=== PATIENT | female | born 1950 | race Caucasian/White ===

== ENCOUNTER → 2017-12-03 16:15 | Outpatient (CLI) | payer MEDICARE, OTHER, SELFPAY ==
--- NOTE | 2017-12-03 | DI.MRI.S_ITS ---
PROCEDURE: MR CERVICAL SPINE WO CON INDICATIONS: NECK PAIN TECHNIQUE: Noncontrast sagittal T1 spin echo and T2 fast spin echo, sagittal STIR, foraminal oblique sagittal T2 fast spin echo, and axial gradient echo or T2 fast spin echo through the cervical spine. COMPARISON: None. FINDINGS: Image quality: Excellent. Spinal Cord: Visualized spinal cord has normal size and signal. No cerebellar tonsillar herniation. The imaged midline intracranial structures are grossly unremarkable. Paraspinous Soft Tissues: No paravertebral masses. Prevertebral soft tissues are normal in thickness. No definite lymphadenopathy is identified. Bones: The vertebral body heights and marrow signal are well-maintained. There is no evidence of an acute fracture or dislocation. No suspicious osseous lesions are identified. C2-C3: There is no significant disc bulge or facet arthropathy. No central canal or neural foraminal stenosis is evident. C3-C4: Mild uncovertebral hypertrophic changes and a mild to moderate bilateral facet arthrosis (left greater than right) is present at this level. These findings result in mild right and moderate left neural foraminal narrowing. No central canal stenosis is evident. C4-C5: There is disc desiccation and mild diffuse disc bulge with uncovertebral hypertrophic changes and mild to moderate bilateral facet arthrosis. There is no central canal stenosis. However, there is mild left neural foraminal narrowing. No right neural foraminal stenosis is evident. C5-C6: There is disc height loss, diffuse disc bulge, posterior disc osteophyte complex, and mild to moderate facet arthrosis (left greater than right). There is no central canal or right neuroforaminal narrowing. However, there is mild to moderate left neural foraminal narrowing. C6-C7: There is disc desiccation and a diffuse disc bulge with posterior disc osteophyte complex and mild to moderate facet arthrosis. There is no central canal stenosis. However, there is moderate left and mild right neuroforaminal narrowing. C7-T1: There is disc desiccation without significant disc bulge or facet arthrosis. No central canal or neural foraminal narrowing is evident. IMPRESSION: 1. Mild to moderate multilevel degenerative changes of the cervical spine. 2. No focal disc protrusions or extrusions. 3. No central canal stenosis. 4. Neural foraminal stenosis: C3-C4 (mild right, moderate left), C4-C5 (mild left), C5-C6 (mild to moderate left), C6-C7 (right, moderate left). Dictated by: Willian Lee M.D. on 12/03/2017 at 16:49 Approved by: Willian Lee M.D. on 12/03/2017 at 16:55
== END ==
PROVIDERS: Family Provider Nurse Practitioner; PCP Nurse Practitioner; Visit Provider Physical Medicine & Rehabilitation Pain Medicine
DX: M54.2 Cervicalgia (principal); M50.30 Other cervical disc degeneration, unspecified cervical region; M48.02 Spinal stenosis, cervical region
CPT/HCPCS: 72141

== ENCOUNTER → 2018-10-10 13:39 | Outpatient (CLI) | payer MEDICARE, OTHER, SELFPAY ==
--- NOTE | 2018-10-10 | DI.MRI.S_ITS ---
PROCEDURE: MR SHOULDER LT WO CON INDICATIONS: IMPINGEMENT OF L SHOULDER TECHNIQUE: Noncontrast oblique coronal T2 fast spin echo with fat saturation, oblique sagittal T1 spin echo and T2 fast spin echo with fat saturation, axial T1 spin echo and T2 fast spin echo with fat saturation through the shoulder. COMPARISON: [facility], , SHOULDER WITHOUT CONTRAST, 09/21/2017, 16:50. FINDINGS: Image quality: Diagnostic. Rotator cuff: No full-thickness or high-grade partial-thickness tear the rotator cuff is present. However, there is supraspinatus, infraspinatus, and subscapularis tendinopathy with areas of low grade bursal surface partial thickness tearing. The teres minor tendon is intact. No significant atrophy of the rotator cuff muscles is evident. Bones and bursae: No acute fracture, dislocation, or suspicious osseous lesion is identified involving the osseous structures of the left shoulder. There are mild to moderate degenerative changes of the glenohumeral and acromio clavicular joints. Widening of the acromioclavicular joint may be related to previous injury. No surrounding soft tissue edema is evident to suggest an acute process. There is a small glenohumeral joint effusion. Moderate amount of fluid is contained within the subacromial subdeltoid bursa. Capsule and soft tissues: Evaluation of the labrum and the glenohumeral ligaments is difficult without intra-articular contrast. However, there does appear to be a posterosuperior labral tear extending from the 12 o'clock position to the 3 o'clock position. No para labral cysts are evident. The long head of the biceps tendon is normally positioned within the bicipital groove. However, the intra-articular portion of the biceps tendon is thickened and edematous, most pronounced at the level of the biceps anchor, suggesting tendinopathy and possible intrasubstance partial thickness tearing. No acute ligamentous injuries of the shoulder are appreciated. Incidental note is made of borderline prominent lymph nodes within the axillary region. IMPRESSION: 1. Mild to moderate supraspinatus, infraspinatus, and subscapularis tendinopathy with areas of low-grade partial-thickness tearing. 2. Small posterosuperior labral tear. 3. Moderate tendinopathy and probable low-grade intrasubstance partial thickness tearing involving the intra-articular portion of the biceps tendon. 4. Mild to moderate degenerative changes of the left shoulder joints. Dictated by: Willian Lee M.D. on 10/10/2018 at 14:54 Approved by: Willian Lee M.D. on 10/10/2018 at 15:02
[2018-10-10 15:25] LABS: Erythrocyte Sedimentation Rate 12 MM/HR (0-20)
[2018-10-10 16:44] LABS: Alanine Aminotransferase 35 IU/L (9-52); Albumin 4.4 g/dL (3.5-5.0); Albumin Globulin Ratio 1.8 (1.0-2.8); Alkaline Phosphatase 68 U/L (38-126); Aspartate Aminotransferase 26 IU/L (14-36); Bilirubin Unconjugated 0.1 mg/dL (0.0-1.1); Carbon Dioxide 27 mmol/L (22-32); Chloride 102 mmol/L (98-107); Globulin 2.4 g/dL (1.7-4.1); HEMOLYSIS < 15 (0-50); Potassium 4.4 mmol/L (3.4-5.1); Sodium 139 mmol/L (137-145); Total Protein 6.8 g/dL (6.3-8.2)
[2018-10-10 16:47] LABS: Rheumatoid Factor 9.7 IU/mL (<12.0)
[2018-10-10 16:51] LABS: Bilirubin Total < 0.1 mg/dL (0.2-1.3)
[2018-10-13 19:56] LABS: ANA Pattern Homogeneous; ANA Screen, IFA Positive (Negative); ANA Titer 1:40 titer (<1:40)
== END ==
PROVIDERS: Family Provider Nurse Practitioner; PCP Nurse Practitioner; Visit Provider Orthopaedic Surgery
DX: M75.42 Impingement syndrome of left shoulder (principal); M19.012 Primary osteoarthritis, left shoulder; S43.492A Other sprain of left shoulder joint, initial encounter; M25.50 Pain in unspecified joint
CPT/HCPCS: 36415; 73221; 80051; 80076; 84550; 85651; 86038; 86430

== ENCOUNTER 2018-11-08 09:47 | Emergency (ER) | payer MEDICARE, OTHER, SELFPAY ==
[2018-11-08 09:59] VITALS: BP 137/63; PULSE 77; RESP 16; TEMP 36.7; O2SAT 95; BMI 27.4
[2018-11-08] MEDS: SODIUM CHLORIDE 0.9% 1,000 ML 1000 ML IV ×2 (10:19→11:55)
[2018-11-08] MEDS: ONDANSETRON 4 MG/2 ML INJ IV (10:19)
[2018-11-08 10:36] LABS: Hematocrit 34.6 % (36-46); Hemoglobin 11.9 g/dL (12.0-16.0); Mean Corpuscular HGB Conc 34.4 % (30-36); Mean Corpuscular Hemoglobin 31.2 PG (26-34); Mean Corpuscular Volume 90.9 fL (80-100); Platelet Count 187 X10^3/uL (150-400); Red Blood Cell Count 3.81 X10^6/uL (4.0-5.2); Red Cell Distribution Width 13.4 % (11.6-14.8); White Blood Cell Count 3.3 X10^3/uL (4.5-11.0)
[2018-11-08 10:38] LABS: Albumin 3.7 g/dL (3.5-5.0); Albumin Globulin Ratio 1.2 (1.0-2.8); Aspartate Aminotransferase 45 IU/L (14-36); Blood Urea Nitrogen 8 mg/dL (7-17); Estimated Glomerular Filt Rate > 60.0 mL/min (>60); Total Protein 6.7 g/dL (6.3-8.2)
[2018-11-08 10:43] LABS: Add Manual Diff / Slide Review YES
[2018-11-08 10:46] VITALS: BP 119/60; PULSE 78; RESP 18; O2SAT 98
[2018-11-08 10:51] LABS: Alanine Aminotransferase 16 IU/L (9-52); Alkaline Phosphatase 58 U/L (38-126); Bilirubin Total 0.5 mg/dL (0.2-1.3); Calcium 8.3 mg/dL (8.4-10.2); Carbon Dioxide 28 mmol/L (22-32); Chloride 94 mmol/L (98-107); Glucose 113 mg/dL (80-110); Potassium 3.5 mmol/L (3.4-5.1); Sodium 130 mmol/L (137-145)
[2018-11-08 10:58] LABS: HEMOLYSIS 118 (0-50)
[2018-11-08 11:10] LABS: Appearance Urine UA CLEAR; Bilirubin Urine UA NEGATIVE (NEGATIVE); Color Urine UA YELLOW; Glucose Urine UA NEGATIVE (Negative); Ketones Urine UA TRACE (NEGATIVE); Leukocyte Esterase Urine UA 1+ (NEGATIVE); Nitrite Urine UA NEGATIVE (Negative); Occult Blood Urine UA TRACE-LYSED (Negative); Protein Urine UA 1+ (Negative); Urobilinogen Urine UA 0.2 E.U./dL (0.2)
[2018-11-08 11:22] LABS: Bacteria Urine Few (2-10); Culture Indicated Urine Specimen Cultured; RBC Urine 0-1/HPF (0-5/HPF); Squamous Epithelial Cell Urine 1-5 /HPF (0-5/HPF); WBC Urine 1-5/HPF (0-5/HPF)
[2018-11-08] MEDS: KETOROLAC 60 MG/2 ML VIAL 30 MG IV (11:39)
[2018-11-08 11:54] LABS: Neutrophils Absolute Manual 1485 /uL (3000-5900); RBC Morphology Normal Morphology; Total Cells Counted 100
[2018-11-08 12:38] VITALS: BP 126/78; PULSE 78; RESP 14; O2SAT 91
[2018-11-08] MEDS: levoFLOXacin 250 MG TABLET 500 MG PO (12:51)
--- NOTE | 2018-11-10 19:26 | ED.NAVMDI ---
HPI - Nausea/Vomiting/Diarrhea General Chief complaint: Nausea/Vomiting/Diarrhea Stated complaint: Can't keep anything T-3 days Time Seen by Provider: 11/08/18 10:02 Source: patient Mode of arrival: ambulatory Limitations: no limitations History of Present Illness HPI Narrative: Patient comes emergency department complaining of nausea and diarrhea for the last few days. Patient just got back from [place], where she lives part of the year and visits frequently. She states that normally she does not get sick there, but that she and a friend a spinach salad at a restaurant, and both of them are sick with the same thing. Patient states she has been having fevers at home, as well. She states that she is able to hold down fluids, but whenever she eats something or drinks something, it seems to just go straight through, so she has been avoiding taking much by mouth. She states that she noticed a green warm and the spinach, and is wondering if this is part of the cause of her symptoms. Patient denies abdominal pain, other than some cramping. No cough, chest pain, or shortness of breath. No sore throat. No dysuria. No back pain. Patient is otherwise healthy. Related Data Home Medications Medication Instructions Recorded Confirmed [VOLTAREN] 25 mg PO DAILY PRN #0 03/14/16 11/08/18 diclofenac sodium [Voltaren] 1 josé miguel TOPICAL PRN PRN #100 gm 03/14/16 11/08/18 cetirizine 10 mg PO DAILY PRN #0 tab 03/15/16 11/08/18 citalopram 20 mg PO DAILY 11/08/18 11/08/18 Previous Rx's Medication Instructions Recorded levofloxacin [Levaquin] 500 mg PO DAILY #5 tab 11/08/18 ondansetron 4 mg PO Q6-8H PRN #14 tab 11/08/18 Allergies Allergy/AdvReac Type Severity Reaction Status Date / Time hydrochlorothiazide Allergy Unknown Verified 11/08/18 09:59 [From HYDRODIURIL] sodium pentothal Allergy Unknown Uncoded 11/08/18 09:59 Review of Systems Constitutional Denies chills, Reports fever(s), Denies lethargy and Denies weakness Eyes Denies change in vision, Denies eye discharge, Denies irritation and Denies loss of vision ENT Ears, Nose, Mouth, and Throat: Denies change in voice, Denies neck pain and Denies sore throat Cardiovascular Denies chest pain, Denies irregular heart rhythm, Denies lightheadedness, Denies palpitations, Denies dyspnea, Denies dyspnea on exertion and Denies orthopnea Respiratory Denies cough, Denies dyspnea, Denies dyspnea on exertion and Denies wheezing Gastrointestinal Gastrointestinal: Denies abdominal pain, Denies change in bowel habits, Reports diarrhea, Reports nausea and Reports vomiting Genitourinary Denies hematuria, Denies flank pain, Denies urinary incontinence and Denies urinary urgency Musculoskeletal Denies neck pain Integumentary/Breasts Denies pruritus, Denies erythema, Denies rash and Denies wounds Neurologic Denies confusion, Denies loss of vision and Denies weakness Psychiatric Denies anxiety, Denies confusion, Denies depression, Denies homicidal ideation and Denies suicidal ideation Endocrine Denies palpitations Hematologic/Lymphatic Denies easy bruising Allergic/Immunologic Denies wheezing [facility] Medical History Traveler's diarrhea (Acute) Back pain (Acute) Piriformis syndrome (Acute) Ventral hernia (Acute) Surgical History No pertinent past surgical history (Acute) Social History Smoking Status: Never smoker Social History Smoking Status: Never smoker Exam Initial Vital Signs Initial Vital Signs: Vital Signs Temperature 98.0 F 11/08/18 09:59 Pulse Rate 77 11/08/18 09:59 Respiratory Rate 16 11/08/18 09:59 Blood Pressure 137/63 11/08/18 09:59 Pulse Oximetry 95 11/08/18 09:59 Const General: cooperative and well developed Nutritional Appearance: well nourished Orientation: alert, awake, oriented x3 and not confused [facility] Head: normocephalic and atraumatic Ears: external ears normal Nose: external nose normal and No nasal discharge Face and sinus: face symmetric and No dry mucous membranes Mouth: oral mucosae normal and moist mucous membranes Teeth and gingiva: dentition normal Eyes General: appearance normal, both eyes and all related structures Eyelids: eyelids normal Conjunctivae: conjunctivae normal Sclera: sclerae normal Pupils: PERRL EOM: EOM intact bilaterally Neck Neck: normal visual inspection, trachea midline, No lymphadenopathy, No midline deformity and No JVD Lymphatic: No lymphedema Chest Chest: normal inspection of the chest Resp Effort & Inspection: normal respiratory effort, able to speak in complete sentences, no respiratory distress and no use of accessory muscles Auscultation: clear to auscultation bilaterally, no rales, no rhonchi and no wheezes Cardio Rate: regular rate Rhythm: regular rhythm Heart Sounds: no click, no gallops, no murmurs and no rubs Pulses: normal peripheral pulses GI Inspection: non-distended Palpation: soft, no hepatosplenomegaly, No guarding, No pulsatile mass and No tender Back/Spine/Pelvis Back: No CVA tenderness Cervical Spine: cervical ROM normal and No pain with cervical ROM Thoracic/Lumbar Spine: thoracic and lumbar spine normal to inspection Skin General: no rashes or lesions noted, No jaundice and No petechiae Neuro General: alert, oriented x3, gait normal and no focal motor deficits Speech: speech normal Extrem General: full ROM, no clubbing, cyanosis or edema, no pedal edema and no calf tenderness Psych Appearance: well kempt Mental Status: mental status grossly normal Attitude: cooperative Thought Content: normal and suicidality Judgment: judgment good Course Course Narrative: Patient was treated symptomatically with IV fluids and Zofran, after which she was found to be feeling better. She was worked up with laboratory studies, which were unremarkable. I felt that given the patient's high fever, as well as the high likelihood of bacterial diarrhea, she should be treated with antibiotics. She was started on Levaquin for this. I felt the patient was stable for discharge home. We have discussed home management of the symptoms, as well as the usual indications for return. Orders Ordered: Discontinued Medications Sodium Chloride (Normal Saline 0.9%) 1,000 mls @ 1,000 mls/hr IV BOLUS ONE Stop: 11/08/18 11:13 Last Infusion: 11/08/18 11:41 Dose: 0 mls/hr Admin: 11/08/18 10:19 Dose: 1,000 mls/hr Sodium Chloride (Normal Saline 0.9%) 1,000 mls @ 1,000 mls/hr IV BOLUS ONE Stop: 11/08/18 12:40 Last Infusion: 11/08/18 13:08 Dose: 0 mls/hr Admin: 11/08/18 11:55 Dose: 1,000 mls/hr Ketorolac Tromethamine (Toradol) 30 mg IV NOW ONE Stop: 11/08/18 11:29 Last Admin: 11/08/18 11:39 Dose: 30 mg Levofloxacin (Levaquin) 500 mg PO NOW ONE Stop: 11/08/18 12:37 Last Admin: 11/08/18 12:51 Dose: 500 mg Ondansetron HCl (Zofran) 4 mg IV NOW ONE Stop: 11/08/18 10:15 Last Admin: 11/08/18 10:19 Dose: 4 mg MDM - Nausea/Vomiting/Diarrhea Medical Records Attestation: I reviewed the patient's medical records. Lab Data Attestation: I reviewed the patient's lab results. Result diagrams: 11/08/18 10:10 11/08/18 10:10 Lab Results 11/08/18 11/08/18 11/08/18 Range/Units 10:10 10:10 10:55 WBC 3.3 L (4.5-11.0) X10^3/uL RBC 3.81 L (4.0-5.2) X10^6/uL Hgb 11.9 L (12.0-16.0) g/dL Hct 34.6 L (36-46) % MCV 90.9 (80-100) fL MCH 31.2 (26-34) PG MCHC 34.4 (30-36) % RDW 13.4 (11.6-14.8) % Plt Count 187 (150-400) X10^3/uL Neut % (Auto) Not Reportable Lymph % (Auto) Not Reportable [place] % (Auto) Not Reportable Eos % (Auto) Not Reportable Baso % (Auto) Not Reportable Lymph # (Auto) Not Reportable Kane # (Auto) Not Reportable Baso # (Auto) Not Reportable Total Counted 100 Seg Neutrophils % 43.0 (38-70) % Band Neutrophils % 2.0 L (3-7) % Lymphocytes % (Manual) 27.0 (25-45) % Atypical Lymphs % 1.0 H ( - 0) % Monocytes % (Manual) 27.0 H (2-11) % Neutrophils # (Manual) 1485 L (7644-1953) /uL RBC Morphology Normal morphology Sodium 130 L (137-145) mmol/L Potassium 3.5 (3.4-5.1) mmol/L Chloride 94 L (98-107) mmol/L Carbon Dioxide 28 (22-32) mmol/L BUN 8 (7-17) mg/dL Creatinine 0.50 L (0.52-1.04) mg/dL Estimated GFR > 60.0 (>60) mL/min BUN/Creatinine Ratio 16.0 (6-22) Glucose 113 H (80-110) mg/dL Calcium 8.3 L (8.4-10.2) mg/dL Total Bilirubin 0.5 (0.2-1.3) mg/dL AST 45 H (14-36) IU/L ALT 16 (9-52) IU/L Alkaline Phosphatase 58 (38-126) U/L Total Protein 6.7 (6.3-8.2) g/dL Albumin 3.7 (3.5-5.0) g/dL Globulin 3.0 (1.7-4.1) g/dL Albumin/Globulin Ratio 1.2 (1.0-2.8) Urine Color Yellow Urine Appearance Clear Urine pH 7.0 (4.5-8.0) Ur Specific [place] 1.010 (1.000-1.035) Urine Protein 1+ H (Negative) Urine Glucose (UA) Negative (Negative) g/dL Urine Ketones Trace H (NEGATIVE) Urine Occult Blood Trace-lysed (Negative) Urine Nitrate Negative (Negative) Urine Bilirubin Negative (NEGATIVE) Urine Urobilinogen 0.2 (0.2) E.U./dL Ur Leukocyte Esterase 1+ H (NEGATIVE) Urine RBC 0-1/hpf (0-5/HPF) Urine WBC 1-5/hpf (0-5/HPF) Ur Squamous Epith Cells 1-5 /hpf (0-5/HPF) Urine Bacteria Few (2-10) H (None) Ur Culture Indicated? Specimen cultured Point of Care Testing Stool Occult Blood Positive Discharge Plan Departure Patient Disposition: Home Clinical Impression: Traveler's diarrhea Discharge Date/Time: 11/08/18 13:21 Interventions: ED Discharge Assessment Last Done: 11/08/18 13:18 Instructions: DI for Dehydration -- Adult, DI for Diarrhea and Traveler's Diarrhea -- Adult Activity Restrictions/Additional Instructions: Your labs look good. Your stool studies are pending, and will need to be follow up by your primary doctor. Given the fever and watery, bloody diarrhea with recent visit to [place], you will be treated with antibiotics for potential bacterial diarrhea. You may also take the nausea medicine, as needed. You may try taking activated charcoal tablets to help with the diarrhea, but make sure this is at least 2 hours before or after any medication you take. Please follow up with your primary doctor if your symptoms do not improve in the next several days. Prescriptions: New levofloxacin [Levaquin] 500 mg tablet 500 mg PO DAILY Qty: 5 RF: 0 ondansetron 4 mg tablet,disintegrating 4 mg PO Q6-8H PRN (Reason: nausea and vomiting) Qty: 14 RF: 0 No Action diclofenac sodium [Voltaren] 1 % gel 1 josé miguel Topical PRN PRN (Reason: pain) Qty: 100 RF: 0 [VOLTAREN] 25 mg PO DAILY PRN (Reason: pain) Qty: 0 RF: 0 cetirizine 10 MG tablet 10 mg PO DAILY PRN (Reason: Allergy Symptoms) Qty: 0 RF: 0 citalopram 20 mg tablet 20 mg PO DAILY RF: 0 Referrals: Josiane Solares ARNP [Primary Care Provider] -
== END 2018-11-08 13:21 | disposition home or self-care (01) ==
PROVIDERS: Emergency Provider Emergency Medicine; PCP Nurse Practitioner
DX: A09 Infectious gastroenteritis and colitis, unspecified (principal)
CPT/HCPCS: 36591; 80053; 81001; 82272; 85025; 87045; 87077; 87086; 87177; 87186; 87899; 96361; 96374; 96375; 99284; J1885; J2405

== ENCOUNTER → 2020-10-14 12:52 | Outpatient (CLI) | payer MEDICARE, OTHER, SELFPAY ==
--- NOTE | 2020-10-14 | DI.MRI.S_ITS ---
PROCEDURE: MR LUMBAR SPINE WO CON INDICATIONS: Other intervertebral disc degeneration, lumbar reg TECHNIQUE: Noncontrast sagittal T1 spin echo and T2 fast echo, sagittal STIR, axial T1 and T2 fast spin echo through the lumbar spine. In cases with scoliosis, additional coronal T2 fast spin echo may be performed. COMPARISON: [facility], MR, MR LUMBAR SPINE WO CON, 09/23/2016, 15:01. [facility], MR, LUMBAR SPINE W/O CONTRAST, 10/19/2014, 17:11. [facility] [place], CR, XR LUMBAR SPINE WITH OLBIQUES PLUS FLEXION EXTENSION, 09/23/2020, 10:54. FINDINGS: Image quality: Diagnostic, with note made of motion artifact. Alignment and Curvature: Mild to moderate dextroconvex scoliotic curvature is seen. Bone Marrow: Marrow is of normal overall signal. No acute vertebral body compression fractures. Spinal Cord: Conus medullaris terminates at the L1 level. Visualized cord demonstrates normal signal and size. Paraspinous Soft Tissues: No paravertebral masses. T12-L1: Normal appearance. L1-L2: At least moderate loss of disc height and disc signal can be seen. Bridging endplate osteophytes are seen. Mild to moderate disc bulge is seen, which is eccentric to the left. Mild to moderate facet hypertrophy is seen. There is mild right-sided and at least moderate left-sided neural foraminal narrowing seen. Mild to moderate central canal narrowing is seen. These imaging findings have progressed compared to the prior study. L2-L3: At least moderate loss of disc height and disc signal can be seen. Bridging endplate osteophytes are seen. At least moderate disc bulge is seen, with a central disc protrusion. Mild to moderate facet hypertrophy is seen. There is moderate left-sided and minimal right-sided neural foraminal narrowing seen. Moderate central canal narrowing is seen. These degenerative changes are worse than in 2017. L3-L4: At least moderate loss of disc height and disc signal can be seen on the left side. Moderate generalized disc bulge is seen. Reactive marrow endplate changes are seen, which demonstrate mixed T1 weighted and T2-weighted signal, and are attributed to a combination of edema and fatty metaplasia (Modic type I and Modic type II changes). Mild to moderate facet hypertrophy is seen, left worse than right. There is moderate right-sided and moderate to severe left-sided neural foraminal narrowing seen. There is a degree of compression seen upon the exiting left L3 nerve root. Moderate to severe central canal narrowing is seen at this level, as on series 6, image 20. These imaging findings have progressed compared to the prior study. L4-L5: Moderate loss of disc height and disc signal can be seen on the right side. At least moderate disc bulge is seen. There is a focal annular fissure seen posteriorly. Moderate to prominent facet hypertrophy can be seen. Associated hypertrophy of the ligamentum flavum can be seen. There is at least moderate right-sided and moderate to severe left-sided foraminal narrowing seen. There is a degree of compression seen upon the exiting nerve roots. There is moderate to severe central canal narrowing seen. These degenerative changes are clearly progressed compared to 2017. L5-S1: Moderate to severe loss of disc height and disc signal can be seen. Bridging endplate osteophytes are seen. Posteriorly projected endplate osteophytes are seen. At least moderate disc bulge is seen at this level. Mild to moderate facet hypertrophy is seen. There is moderate left-sided and moderate to severe right-sided neural foraminal narrowing seen. At least moderate central canal narrowing is seen. These degenerative changes are slightly progressed compared to 2017. IMPRESSION: Multiple levels of lumbar spine degenerative change are seen, which have progressed compared to 2017. [id number] dextroconvex scoliosis can be seen. Dictated by: Abel Martinez M.D. on 10/14/2020 at 12:47 Approved by: Abel Martinez M.D. on 10/14/2020 at 12:54
== END ==
PROVIDERS: PCP Nurse Practitioner; Referring Provider Physical Medicine & Rehabilitation Pain Medicine; Visit Provider Physical Medicine & Rehabilitation Pain Medicine
DX: M51.36 Other intervertebral disc degeneration, lumbar region (principal); M47.816 Spondylosis without myelopathy or radiculopathy, lumbar region; M47.817 Spondylosis without myelopathy or radiculopathy, lumbosacral region; M41.86 Other forms of scoliosis, lumbar region
CPT/HCPCS: 72148

== ENCOUNTER 2022-02-23 21:37 | Emergency (ER) | payer MEDICARE, OTHER, SELFPAY ==
[2022-02-23 21:54] VITALS: BP 157/98; PULSE 71; RESP 17; TEMP 36.2; O2SAT 95; BMI 28.1
--- NOTE | 2022-02-23 22:03 | DI.RAD.S_ITS ---
PROCEDURE: XR CHEST 2V INDICATIONS: cough, rhonchi x 1 week TECHNIQUE: 2 views of the chest were acquired. COMPARISON: None. FINDINGS: Surgical changes and devices: None. Lungs and pleura: Lungs are clear. No pleural effusions or pneumothorax. Mediastinum: Mediastinal contours are normal. Heart size is normal. Bones and chest wall: No suspicious bony abnormalities. Soft tissues appear unremarkable. IMPRESSION: 1. No acute cardiopulmonary disease. Dictated by: Al Jolly M.D. on 02/23/2022 at 23:39 Approved by: Al Jolly M.D. on 02/23/2022 at 23:39
[2022-02-23 22:31] LABS: COVID19 -Nasal RAPID Negative (Negative)
== END 2022-02-23 23:37 | disposition left against medical advice (07) ==
PROVIDERS: Emergency Provider Emergency Medicine; PCP Nurse Practitioner
DX: R05.9 Cough, unspecified (principal); Z20.822 Contact with and (suspected) exposure to COVID-19
CPT/HCPCS: 71046; 87635; 99281; C9803